=== PATIENT | male | born 1935 | race Caucasian/White ===

== ENCOUNTER → 2016-05-28 | Outpatient (CLI) | payer MEDICARE, OTHER | END | disposition home or self-care (01) | LOC: RAD 09:49 | PROVIDERS: ATTEND Family Medicine | DX: R05 Cough (principal) | CPT/HCPCS: 71020 ==

== ENCOUNTER → 2016-06-07 | Outpatient (CLI) | payer MEDICARE, OTHER ==
[~2016-06-07] MED LIST: ASPI-496 PO; CALC-72 PO; CARV6.2512 PO; CETI10CA PO; COLC0.6T37 PO; CYAN1TAB29 PO; DABI75CA3 PO; DIGO125T6 PO; DONE10TA30 PO; MAGN400T26 PO; MULT-658 PO; SIMV40TA PO; TRAV5DRO EACHEYE; VIT1CAPS42 PO
[2016-06-07 11:55] LABS: ASPARTATE AMINO TRANSFERASE 22 U/L (15-37); BLOOD UREA NITROGEN 21 mg/dL (7-18)
== END | disposition home or self-care (01) ==
LOC: STAR 10:03
PROVIDERS: ATTEND Urology
DX: Z01.818 Encounter for other preprocedural examination (principal); N20.0 Calculus of kidney
CPT/HCPCS: 36415; 80053; 81001; 87086; 93005

== ENCOUNTER 2016-06-15 06:45 | Day surgery (SDC) | payer MEDICARE, OTHER ==
[2016-06-07 10:31] VITALS: BP 115/69
[~2016-06-15] VITALS: Ht 190.5 cm; Wt 71.8 kg
[~2016-06-15 06:45] MED LIST changes: -TRAV5DRO EACHEYE; +TRAV5DRO LEFTEYE
[2016-06-15] MEDS ORDERED: LACTATED RINGERS 1,000 ML IV SCH (08:15)
[2016-06-15] MEDS ORDERED: LIDOCAINE 1%, 2ML SQ PRN (08:30)
[2016-06-15] MEDS ORDERED: FENTANYL PF 250 MCG/5ML ONE (09:25)
[2016-06-15] MEDS ORDERED: ROCURONIUM 10 MG/ML ONE (09:28)
[2016-06-15] MEDS ORDERED: PROPOFOL 10 MG/ML, 20ML ONE (09:28)
[2016-06-15] MEDS ORDERED: PHENYLEPHRINE 10 MG/ML ONE (09:28)
[2016-06-15] MEDS ORDERED: DEXAMETHASONE 4 MG/ML, 1ML ONE (09:28)
[2016-06-15] MEDS ORDERED: CEFAZOLIN 1,000 MG ONE (09:28)
[2016-06-15] MEDS ORDERED: EPHEDRINE 50 MG/ML, 1ML ONE (09:28)
[2016-06-15] MEDS ORDERED: ONDANSETRON 2MG/ML, 2ML ONE (09:28)
[2016-06-15] MEDS ORDERED: ONDANSETRON 2MG/ML, 2ML IVPush PRN (10:30)
[2016-06-15] MEDS ORDERED: MEPERIDINE/PF 25MG/0.5ML IVPush PRN (10:30)
[2016-06-15] MEDS ORDERED: ACETAMINOPHEN 325 MG TABLET PO PRN (10:30)
[2016-06-15] MEDS ORDERED: MIDAZOLAM 1 MG/ML, 2ML IV PRN (10:30)
[2016-06-15] MEDS ORDERED: FENTANYL PF 100 MCG/2ML IV PRN (10:30)
[2016-06-15] MEDS ORDERED: HYDROmorphone 1 MG/ML, 1ML IV PRN (10:30)
[2016-06-15] MEDS ORDERED: hydrALAzine 20 MG/ML, 1ML IV PRN (10:30)
[2016-06-15] MEDS ORDERED: METOCLOPRAMIDE 5 MG/ML, 2ML IV PRN (10:30)
[2016-06-15] MEDS ORDERED: LABETALOL 5MG/ML, 20ML IV PRN (10:30)
[2016-06-15] MEDS ORDERED: OXYcodone 5 MG/5 ML ORAL.SOL UDC PO PRN (10:30)
[2016-06-15] MEDS ORDERED: PROMETHAZINE 25 MG/ML, 1ML IV PRN (10:30)
[2016-06-15] MEDS ORDERED: OXYcodone 5 MG/5 ML ORAL.SOL UDC ONE (11:02)
[2016-06-15] MEDS ORDERED: ACETAMINOPHEN 650 MG/20.3 ML UDC ONE (11:02)
== END 2016-06-15 12:35 | disposition home or self-care (01) ==
LOC: OUT 06:45
PROVIDERS: ATTEND Urology
DX: N20.2 Calculus of kidney with calculus of ureter (principal); I25.10 Atherosclerotic heart disease of native coronary artery without angina pectoris; I10 Essential (primary) hypertension; Z79.82 Long term (current) use of aspirin
CPT/HCPCS: 52353; 74000; 76000; 88300; C1758; C1769; J0690; J1100; J2370; J2405; J2704; J3010; 82360

== ENCOUNTER 2018-07-21 09:20 | Inpatient (IN) | payer MEDICARE, OTHER ==
[~2018-07-21] VITALS: Ht 193 cm; Wt 80.0 kg
[~2018-07-21 09:20] MED LIST changes: +CALC-534 PO; -CALC-72 PO; -DIGO125T6 PO; +DIGO125T81 PO; -DONE10TA30 PO; +DONE10TA56 PO
[2018-07-21 09:56] VITALS: BP 126/71
[2018-07-21] MEDS ORDERED: LACTATED RINGERS 1,000 ML IV SCH (10:09)
[2018-07-21] MEDS ORDERED: MEMA1CAP3 PO (10:12)
[2018-07-21] MEDS ORDERED: ATOR10TA PO (10:12)
[2018-07-21 14:38] LABS: BASOPHILS # (AUTO) 0.03 x10^3/uL (0-0.1); BASOPHILS % (AUTO) 1 % (0-1); EOSINOPHILS # (AUTO) 0.19 x10^3/uL (0-0.4); EOSINOPHILS % (AUTO) 3 % (1-7); LYMPHOCYTES # (AUTO) 0.99 x10^3/uL (1-3.4); LYMPHOCYTES % (AUTO) 15 % (22-44); MD NO; MEAN CORPUSCULAR HGB CONC 32.3 g/dL (33.2-36.2); MEAN CORPUSCULAR VOLUME 83.7 fL (81-97); MEAN PLATELET VOLUME 7.6 fL (7.4-10.4); MONOCYTES # (AUTO) 0.48 x10^3/uL (0.2-0.8); MONOCYTES % (AUTO) 7 % (2-9); NEUTROPHILS # (AUTO) 4.97 x10^3/uL (1.8-6.8); NEUTROPHILS % (AUTO) 75 % (42-75); PLATELET COUNT 111 x10^3/uL (130-400); RED BLOOD COUNT 3.93 x10^6/uL (4.38-5.82); RED CELL DISTRIBUTION WIDTH 15.9 % (9.4-14.8)
[2018-07-21 14:49] LABS: ALANINE AMINOTRANSFERASE 20 U/L (12-78); ANION GAP 6 mmol/L (5-15); CALCIUM 7.9 mg/dL (8.5-10.1); CHLORIDE 111 mmol/L (98-107); CREATININE 1.24 mg/dL (0.7-1.3)
[2018-07-21 14:52] LABS: INTERNATIONAL NORMALIZED RATIO 1.26 (0.93-1.1)
[2018-07-21 14:53] LABS: ALKALINE PHOSPHATASE 95 U/L (45-117); BILIRUBIN,TOTAL 1.1 mg/dL (0.2-1.0); TOTAL PROTEIN 5.2 g/dL (6.4-8.2)
[2018-07-21 15:08] LABS: PROTHROMBIN TIME 13.1 Seconds (9.6-11.5)
[2018-07-21] MEDS ORDERED: ONDANSETRON ODT 4 MG PO PRN (15:30)
[2018-07-21] MEDS ORDERED: POLYETHYLENE GLYCOL 17 GM PACKET PO PRN (15:30)
[2018-07-21] MEDS ORDERED: ONDANSETRON 2MG/ML, 2ML IVPush PRN (15:30)
[2018-07-21] MEDS ORDERED: LABETALOL 5MG/ML, 20ML IVPush PRN (15:30)
[2018-07-21] MEDS ORDERED: NALOXONE 0.4 MG/ML, 1ML IV PRN (16:30)
[2018-07-21] MEDS: D5%-0.45% NACL 1,000 ML IV SCH (16:40)
[2018-07-21] MEDS ORDERED: OMNIPAQUE 350 MG/ML, 100ML BOTTLE ONE (18:54)
[2018-07-21 19:15] VITALS: BP 110/62
[2018-07-22] VITALS: BP 121/58
[2018-07-22] MEDS: COLCHICINE 0.6 MG TABLET PO PRN ×2 (01:05→21:30)
[2018-07-22 04:21] VITALS: BP 112/69
[2018-07-22] MEDS: D5%-0.45% NACL 1,000 ML IV SCH ×2 (04:22→11:54)
[2018-07-22] MEDS ORDERED: OXYcodone/APAP 5/325MG TABLET PO ONE (05:00)
[2018-07-22 05:22] LABS: BASOPHILS # (AUTO) 0.02 x10^3/uL (0-0.1); BASOPHILS % (AUTO) 0 % (0-1); CHLORIDE 110 mmol/L (98-107); EOSINOPHILS % (AUTO) 1 % (1-7); LYMPHOCYTES # (AUTO) 1.24 x10^3/uL (1-3.4); LYMPHOCYTES % (AUTO) 15 % (22-44); MD NO; MEAN CORPUSCULAR HEMOGLOBIN 27.5 pg (27.5-34.5); MEAN CORPUSCULAR HGB CONC 33.2 g/dL (33.2-36.2); MEAN CORPUSCULAR VOLUME 82.7 fL (81-97); MEAN PLATELET VOLUME 7.9 fL (7.4-10.4); MONOCYTES # (AUTO) 0.71 x10^3/uL (0.2-0.8); MONOCYTES % (AUTO) 8 % (2-9); NEUTROPHILS # (AUTO) 6.51 x10^3/uL (1.8-6.8); NEUTROPHILS % (AUTO) 76 % (42-75); PLATELET COUNT 119 x10^3/uL (130-400); RED BLOOD COUNT 4.16 x10^6/uL (4.38-5.82); RED CELL DISTRIBUTION WIDTH 16.1 % (9.4-14.8)
[2018-07-22 05:34] LABS: ALANINE AMINOTRANSFERASE 21 U/L (12-78); ALBUMIN 3.3 g/dL (3.4-5.0); ALKALINE PHOSPHATASE 108 U/L (45-117); ANION GAP 4 mmol/L (5-15); BILIRUBIN,TOTAL 1.5 mg/dL (0.2-1.0); CALCIUM 8.2 mg/dL (8.5-10.1); TOTAL PROTEIN 5.7 g/dL (6.4-8.2)
[2018-07-22 07:04] VITALS: BP 110/59
[2018-07-22] MEDS ORDERED: MEMANTINE HCL HOMEMEDPO SCH (09:00)
[2018-07-22] MEDS ORDERED: DONEPEZIL HCL HOMEMEDPO SCH (09:00)
[2018-07-22] MEDS: MULTIVITAMIN 1 TABLET PO SCH (09:01)
[2018-07-22] MEDS: SENNA/DOCUSATE TABLET PO SCH (09:01)
[2018-07-22] MEDS: CARVEDILOL 6.25 MG TABLET PO SCH (09:01)
[2018-07-22] MEDS: MAGNESIUM OXIDE 400 MG TABLET PO SCH ×2 (09:01→21:25)
[2018-07-22 14:09] VITALS: BP 111/60
[2018-07-22 19:56] VITALS: BP 113/68
[2018-07-22] MEDS ORDERED: TRAVOPROST OPHTH 0.004%, 2.5ML LEFTEYE SCH (21:00)
[2018-07-22] MEDS ORDERED: ATORVASTATIN 10 MG TABLET PO SCH (21:00)
[2018-07-22] MEDS: TRAVOPROST OPHTH 0.004%, 2.5ML OP SCH (21:43)
[2018-07-23 02:20] VITALS: BP 114/71
[2018-07-23 05:31] LABS: BASOPHILS # (AUTO) 0.02 x10^3/uL (0-0.1); BASOPHILS % (AUTO) 0 % (0-1); EOSINOPHILS % (AUTO) 2 % (1-7); LYMPHOCYTES # (AUTO) 1.44 x10^3/uL (1-3.4); LYMPHOCYTES % (AUTO) 21 % (22-44); MD NO; MEAN CORPUSCULAR HEMOGLOBIN 27.3 pg (27.5-34.5); MEAN CORPUSCULAR HGB CONC 32.9 g/dL (33.2-36.2); MONOCYTES # (AUTO) 0.67 x10^3/uL (0.2-0.8); MONOCYTES % (AUTO) 10 % (2-9); NEUTROPHILS # (AUTO) 4.75 x10^3/uL (1.8-6.8); NEUTROPHILS % (AUTO) 68 % (42-75); PLATELET COUNT 119 x10^3/uL (130-400); RED BLOOD COUNT 4.21 x10^6/uL (4.38-5.82); RED CELL DISTRIBUTION WIDTH 15.8 % (9.4-14.8)
[2018-07-23 05:40] LABS: CALCIUM 8.3 mg/dL (8.5-10.1); CHLORIDE 111 mmol/L (98-107)
[2018-07-23 05:46] LABS: ALANINE AMINOTRANSFERASE 17 U/L (12-78); ALBUMIN 3.1 g/dL (3.4-5.0); ALKALINE PHOSPHATASE 103 U/L (45-117); ANION GAP 4 mmol/L (5-15); BILIRUBIN,TOTAL 1.1 mg/dL (0.2-1.0); CREATININE 1.44 mg/dL (0.7-1.3); TOTAL PROTEIN 5.7 g/dL (6.4-8.2)
[2018-07-23 08:10] VITALS: BP 118/75
[2018-07-23] MEDS: morphine SULFATE 10 MG/ML, 1ML IV PRN (09:30)
[2018-07-23] MEDS: MULTIVITAMIN 1 TABLET PO SCH (09:32)
[2018-07-23] MEDS: SENNA/DOCUSATE TABLET PO SCH (09:32)
[2018-07-23] MEDS: MAGNESIUM OXIDE 400 MG TABLET PO SCH ×2 (09:32→21:00)
[2018-07-23] MEDS: CARVEDILOL 6.25 MG TABLET PO SCH (09:32)
[2018-07-23 13:39] VITALS: BP 124/76
[2018-07-23] MEDS ORDERED: FENTANYL PF 250 MCG/5ML ONE (15:00)
[2018-07-23] MEDS ORDERED: ONDANSETRON 2MG/ML, 2ML ONE (15:03)
[2018-07-23] MEDS ORDERED: CEFOTETAN 2 GM ONE (15:03)
[2018-07-23] MEDS ORDERED: ROCURONIUM 10 MG/ML,10ML ONE (15:03)
[2018-07-23] MEDS ORDERED: D5%-0.45% NACL 1,000 ML IV SCH (15:03)
[2018-07-23] MEDS ORDERED: SUCCINYLCHOLINE 20 MG/ML, 10ML ONE (15:03)
[2018-07-23] MEDS ORDERED: PROPOFOL 50 ML ONE (15:22)
[2018-07-23] MEDS ORDERED: FENTANYL PF 100 MCG/2ML IV PRN (16:30)
[2018-07-23] MEDS ORDERED: EPHEDRINE 50 MG/ML, 1ML IM PRN (16:30)
[2018-07-23] MEDS ORDERED: ONDANSETRON ODT 8 MG PO PRN (16:30)
[2018-07-23] MEDS ORDERED: OXYcodone 5 MG/5 ML ORAL.SOL UDC PO PRN (16:30)
[2018-07-23] MEDS ORDERED: PROMETHAZINE 25 MG/ML, 1ML IV PRN (16:30)
[2018-07-23] MEDS ORDERED: ONDANSETRON 2MG/ML, 2ML IV PRN (16:30)
[2018-07-23] MEDS ORDERED: MIDAZOLAM 1 MG/ML, 2ML IV PRN (16:30)
[2018-07-23] MEDS ORDERED: FENTANYL PF 100 MCG/2ML ONE (17:17)
[2018-07-23] MEDS ORDERED: HYDROmorphone 2 MG/ML, 1ML ONE (17:17)
[2018-07-23] MEDS: HYDROmorphone 2 MG/ML, 1ML IVPush PRN ×4 (17:22→18:09)
[2018-07-23 19:27] VITALS: BP 112/56
[2018-07-23] MEDS ORDERED: D5%-0.45NACL+KCL 20MEQ 1,000 ML IV SCH (19:30)
[2018-07-23] MEDS: TRAVOPROST OPHTH 0.004%, 2.5ML OP SCH (21:00)
[2018-07-23] MEDS ORDERED: SODIUM CHLORIDE 0.9% 1,000ML IVBOLUS ONE (21:30)
[2018-07-23] MEDS ORDERED: SODIUM CHLORIDE 0.9%, 500ML IVBOLUS ONE (23:30)
[2018-07-24 00:27] VITALS: BP 99/52
[2018-07-24] MEDS: morphine SULFATE 10 MG/ML, 1ML IV PRN ×3 (02:23→20:46)
[2018-07-24 04:03] VITALS: BP 97/51
[2018-07-24 07:06] LABS: MEAN CORPUSCULAR HEMOGLOBIN 26.4 pg (27.5-34.5); MEAN CORPUSCULAR HGB CONC 30.8 g/dL (33.2-36.2); MEAN CORPUSCULAR VOLUME 85.7 fL (81-97); MEAN PLATELET VOLUME 7.9 fL (7.4-10.4); PLATELET COUNT 116 x10^3/uL (130-400); RED BLOOD COUNT 4.19 x10^6/uL (4.38-5.82); RED CELL DISTRIBUTION WIDTH 15.5 % (9.4-14.8)
[2018-07-24 07:13] LABS: ALANINE AMINOTRANSFERASE 17 U/L (12-78); ALBUMIN 2.6 g/dL (3.4-5.0); ANION GAP 5 mmol/L (5-15); CALCIUM 7.6 mg/dL (8.5-10.1); CHLORIDE 114 mmol/L (98-107); CREATININE 1.38 mg/dL (0.7-1.3)
[2018-07-24 07:15] LABS: ALKALINE PHOSPHATASE 88 U/L (45-117); BILIRUBIN,TOTAL 1.4 mg/dL (0.2-1.0); TOTAL PROTEIN 4.9 g/dL (6.4-8.2)
[2018-07-24 07:32] LABS: ANISOCYTOSIS 1+; BASOPHILS # (AUTO) 0.03 x10^3/uL (0-0.1); BASOPHILS % (AUTO) 0 % (0-1); EOSINOPHILS # (AUTO) 0.03 x10^3/uL (0-0.4); EOSINOPHILS % (AUTO) 0 % (1-7); LYMPHOCYTES % (AUTO) 9 % (22-44); MD MORPH REVIEW ONLY; MONOCYTES # (AUTO) 0.94 x10^3/uL (0.2-0.8); MONOCYTES % (AUTO) 8 % (2-9); NEUTROPHILS # (AUTO) 9.28 x10^3/uL (1.8-6.8); NEUTROPHILS % (AUTO) 82 % (42-75)
[2018-07-24 07:33] LABS: <PLATELET ESTIMATE> DECREASED; <PLT MORPHOLOGY> NORMAL PLT MORPH; HYPOCHROMIA 1+; OVALOCYTES 1+; POLYCHROMASIA 1+
[2018-07-24 07:37] VITALS: BP 98/51
[2018-07-24] MEDS: MAGNESIUM OXIDE 400 MG TABLET PO SCH ×2 (07:37→20:30)
[2018-07-24] MEDS: CARVEDILOL 6.25 MG TABLET PO SCH (09:00)
[2018-07-24] MEDS ORDERED: OMNIPAQUE 350 MG/ML, 75ML BOTTLE ONE (12:05)
[2018-07-24] MEDS: D5%-0.45% NACL 1,000 ML IV SCH ×2 (12:11→21:42)
[2018-07-24 13:11] VITALS: BP 112/70
[2018-07-24 16:38] VITALS: BP 100/50
[2018-07-24] MEDS ORDERED: D5%-0.45NACL+KCL 20MEQ 1,000 ML IV SCH (19:30)
[2018-07-24] MEDS: TRAVOPROST OPHTH 0.004%, 2.5ML OP SCH (20:30)
[2018-07-24 21:34] VITALS: BP 104/56
[2018-07-25] MEDS: morphine SULFATE 10 MG/ML, 1ML IV PRN ×3 (02:53→18:29)
[2018-07-25 03:55] VITALS: BP 97/57
[2018-07-25 04:43] LABS: BASOPHILS # (AUTO) 0.03 x10^3/uL (0-0.1); BASOPHILS % (AUTO) 0 % (0-1); EOSINOPHILS # (AUTO) 0.09 x10^3/uL (0-0.4); EOSINOPHILS % (AUTO) 1 % (1-7); LYMPHOCYTES # (AUTO) 0.93 x10^3/uL (1-3.4); LYMPHOCYTES % (AUTO) 11 % (22-44); MD NO; MEAN CORPUSCULAR HEMOGLOBIN 27.4 pg (27.5-34.5); MEAN CORPUSCULAR HGB CONC 32.8 g/dL (33.2-36.2); MEAN CORPUSCULAR VOLUME 83.6 fL (81-97); MEAN PLATELET VOLUME 7.8 fL (7.4-10.4); MONOCYTES # (AUTO) 0.83 x10^3/uL (0.2-0.8); MONOCYTES % (AUTO) 10 % (2-9); NEUTROPHILS % (AUTO) 78 % (42-75); PLATELET COUNT 103 x10^3/uL (130-400); RED BLOOD COUNT 3.69 x10^6/uL (4.38-5.82); RED CELL DISTRIBUTION WIDTH 15.1 % (9.4-14.8)
[2018-07-25 04:52] LABS: CHLORIDE 110 mmol/L (98-107)
[2018-07-25 05:01] LABS: ANION GAP 3 mmol/L (5-15); CALCIUM 7.8 mg/dL (8.5-10.1); CREATININE 1.31 mg/dL (0.7-1.3)
[2018-07-25] MEDS: D5%-0.45% NACL 1,000 ML IV SCH ×2 (05:31→16:05)
[2018-07-25 08:50] VITALS: BP 106/70
[2018-07-25 09:44] VITALS: BP 99/64
[2018-07-25] MEDS: CARVEDILOL 6.25 MG TABLET PO SCH (09:44)
[2018-07-25] MEDS: MAGNESIUM OXIDE 400 MG TABLET PO SCH ×2 (09:46→20:56)
[2018-07-25 15:42] VITALS: BP 99/55
[2018-07-25] MEDS: TRAVOPROST OPHTH 0.004%, 2.5ML OP SCH (20:56)
[2018-07-25 21:03] VITALS: BP 109/71
[2018-07-26] MEDS ORDERED: MORPHINE SULFATE 4 MG/ML, 1ML ONE (00:37)
[2018-07-26] MEDS: morphine SULFATE 10 MG/ML, 1ML IV PRN ×2 (00:40→08:40)
[2018-07-26 00:48] VITALS: BP 123/69
[2018-07-26] MEDS: D5%-0.45% NACL 1,000 ML IV SCH (01:55)
[2018-07-26 04:36] LABS: BASOPHILS # (AUTO) 0.02 x10^3/uL (0-0.1); BASOPHILS % (AUTO) 0 % (0-1); EOSINOPHILS # (AUTO) 0.11 x10^3/uL (0-0.4); EOSINOPHILS % (AUTO) 2 % (1-7); LYMPHOCYTES # (AUTO) 0.91 x10^3/uL (1-3.4); LYMPHOCYTES % (AUTO) 12 % (22-44); MD NO; MEAN CORPUSCULAR HEMOGLOBIN 27.3 pg (27.5-34.5); MEAN CORPUSCULAR HGB CONC 31.9 g/dL (33.2-36.2); MEAN CORPUSCULAR VOLUME 85.6 fL (81-97); MEAN PLATELET VOLUME 7.9 fL (7.4-10.4); MONOCYTES # (AUTO) 0.67 x10^3/uL (0.2-0.8); MONOCYTES % (AUTO) 9 % (2-9); NEUTROPHILS % (AUTO) 77 % (42-75); PLATELET COUNT 108 x10^3/uL (130-400); RED BLOOD COUNT 3.91 x10^6/uL (4.38-5.82); RED CELL DISTRIBUTION WIDTH 14.9 % (9.4-14.8)
[2018-07-26 04:47] LABS: CHLORIDE 109 mmol/L (98-107)
[2018-07-26 04:53] LABS: ALANINE AMINOTRANSFERASE 25 U/L (12-78); ALBUMIN 2.4 g/dL (3.4-5.0); ALKALINE PHOSPHATASE 84 U/L (45-117); ANION GAP 5 mmol/L (5-15); BILIRUBIN, DIRECT 0.3 mg/dL (0.1-0.2); BILIRUBIN,INDIRECT 0.7 mg/dL (0.0-2.0); CALCIUM 7.9 mg/dL (8.5-10.1); CREATININE 1.17 mg/dL (0.7-1.3); TOTAL PROTEIN 5.2 g/dL (6.4-8.2)
[2018-07-26 07:00] VITALS: BP 123/78
[2018-07-26] MEDS: MAGNESIUM OXIDE 400 MG TABLET PO SCH ×2 (08:10→20:49)
[2018-07-26] MEDS: CARVEDILOL 6.25 MG TABLET PO SCH (08:10)
[2018-07-26] MEDS ORDERED: morphine SULFATE 10 MG/ML, 1ML IV PRN (11:00)
[2018-07-26] MEDS ORDERED: D5%-0.45% NACL 1,000 ML IV SCH (11:30)
[2018-07-26] MEDS ORDERED: ENOXAPARIN 40 MG/0.4 ML SQ SCH (14:00)
[2018-07-26 14:10] VITALS: BP 120/68
[2018-07-26] MEDS: HYDROcodone/APAP 5/325 TABLET PO PRN ×2 (14:24→20:48)
[2018-07-26 20:02] VITALS: BP 112/70
[2018-07-26] MEDS: TRAVOPROST OPHTH 0.004%, 2.5ML OP SCH (20:49)
[2018-07-27] MEDS: morphine SULFATE 10 MG/ML, 1ML IV PRN ×2 (00:27→08:48)
[2018-07-27 00:37] VITALS: BP 109/68
[2018-07-27 05:18] LABS: BASOPHILS # (AUTO) 0.02 x10^3/uL (0-0.1); BASOPHILS % (AUTO) 0 % (0-1); EOSINOPHILS # (AUTO) 0.19 x10^3/uL (0-0.4); EOSINOPHILS % (AUTO) 3 % (1-7); LYMPHOCYTES # (AUTO) 1.04 x10^3/uL (1-3.4); LYMPHOCYTES % (AUTO) 17 % (22-44); MD NO; MEAN CORPUSCULAR HEMOGLOBIN 27.2 pg (27.5-34.5); MEAN CORPUSCULAR VOLUME 85.3 fL (81-97); MEAN PLATELET VOLUME 7.8 fL (7.4-10.4); MONOCYTES # (AUTO) 0.61 x10^3/uL (0.2-0.8); MONOCYTES % (AUTO) 10 % (2-9); NEUTROPHILS # (AUTO) 4.38 x10^3/uL (1.8-6.8); NEUTROPHILS % (AUTO) 70 % (42-75); PLATELET COUNT 135 x10^3/uL (130-400); RED BLOOD COUNT 3.92 x10^6/uL (4.38-5.82); RED CELL DISTRIBUTION WIDTH 14.8 % (9.4-14.8)
[2018-07-27 05:21] LABS: CHLORIDE 108 mmol/L (98-107)
[2018-07-27 05:28] LABS: ALANINE AMINOTRANSFERASE 42 U/L (12-78); ALBUMIN 2.5 g/dL (3.4-5.0); ALKALINE PHOSPHATASE 89 U/L (45-117); ANION GAP 5 mmol/L (5-15); BILIRUBIN,TOTAL 0.9 mg/dL (0.2-1.0); CREATININE 1.29 mg/dL (0.7-1.3); TOTAL PROTEIN 5.5 g/dL (6.4-8.2)
[2018-07-27 07:25] VITALS: BP 123/76
[2018-07-27] MEDS: MAGNESIUM OXIDE 400 MG TABLET PO SCH ×2 (08:47→20:40)
[2018-07-27] MEDS: CARVEDILOL 6.25 MG TABLET PO SCH (08:47)
[2018-07-27] MEDS: HYDROcodone/APAP 5/325 TABLET PO PRN ×2 (12:34→22:47)
[2018-07-27] MEDS ORDERED: PHARMACY MAY ADJ FOR RENAL FX MC PRN (13:30)
[2018-07-27 13:58] VITALS: BP 92/56
[2018-07-27 16:54] VITALS: BP 108/66
[2018-07-27 19:35] VITALS: BP 105/64
[2018-07-27] MEDS: DABIGATRAN 150 MG CAPSULE PO SCH (20:40)
[2018-07-27] MEDS: TRAVOPROST OPHTH 0.004%, 2.5ML OP SCH (20:41)
[2018-07-28] MEDS ORDERED: DIPHENHYDRAMINE 25 MG CAPSULE PO PRN
[2018-07-28 00:35] VITALS: BP 138/81
[2018-07-28 08:12] VITALS: BP 126/76
[2018-07-28] MEDS: HYDROcodone/APAP 5/325 TABLET PO PRN (09:05)
[2018-07-28] MEDS: MAGNESIUM OXIDE 400 MG TABLET PO SCH (09:05)
[2018-07-28] MEDS: DABIGATRAN 150 MG CAPSULE PO SCH (09:05)
[2018-07-28] MEDS: CARVEDILOL 6.25 MG TABLET PO SCH (09:06)
[2018-07-28 10:07] LABS: BASOPHILS # (AUTO) 0.03 x10^3/uL (0-0.1); BASOPHILS % (AUTO) 1 % (0-1); EOSINOPHILS # (AUTO) 0.23 x10^3/uL (0-0.4); EOSINOPHILS % (AUTO) 4 % (1-7); LYMPHOCYTES # (AUTO) 1.14 x10^3/uL (1-3.4); LYMPHOCYTES % (AUTO) 20 % (22-44); MD NO; MEAN CORPUSCULAR HEMOGLOBIN 26.1 pg (27.5-34.5); MEAN CORPUSCULAR HGB CONC 31.1 g/dL (33.2-36.2); MEAN PLATELET VOLUME 7.5 fL (7.4-10.4); MONOCYTES # (AUTO) 0.46 x10^3/uL (0.2-0.8); MONOCYTES % (AUTO) 8 % (2-9); NEUTROPHILS # (AUTO) 3.78 x10^3/uL (1.8-6.8); NEUTROPHILS % (AUTO) 67 % (42-75); PLATELET COUNT 166 x10^3/uL (130-400); RED BLOOD COUNT 4.68 x10^6/uL (4.38-5.82); RED CELL DISTRIBUTION WIDTH 15.2 % (9.4-14.8)
[2018-07-28 10:31] LABS: ALBUMIN 2.8 g/dL (3.4-5.0); ANION GAP 7 mmol/L (5-15); CALCIUM 8.6 mg/dL (8.5-10.1); CHLORIDE 107 mmol/L (98-107); CREATININE 1.21 mg/dL (0.7-1.3)
[2018-07-28 10:42] LABS: ALANINE AMINOTRANSFERASE 57 U/L (12-78); ALKALINE PHOSPHATASE 109 U/L (45-117); BILIRUBIN,TOTAL 0.7 mg/dL (0.2-1.0); TOTAL PROTEIN 6.3 g/dL (6.4-8.2)
[2018-07-28 13:23] VITALS: BP 128/72
[2018-07-28 13:33] VITALS: BP 126/79
== END 2018-07-28 16:39 | DRG 330 ==
LOC: OUT 09:20 → ORIP 15:03 → 4NOR 16:13 → 3NW 07-24 15:47
PROVIDERS: ADMIT Internal Medicine; ATTEND Internal Medicine
PROC: 0DBK8ZX Excision of Ascending Colon, Via Natural or Artificial Opening Endoscopic, Diagnostic (ICD-10-PCS; 2018-07-21)
PROC: 0DTF0ZZ Resection of Right Large Intestine, Open Approach (ICD-10-PCS; principal; 2018-07-23 15:00)
DX: C18.2 Malignant neoplasm of ascending colon (principal); K92.1 Melena; D68.69 Other thrombophilia; C18.3 Malignant neoplasm of hepatic flexure; E46 Unspecified protein-calorie malnutrition; K56.7 Ileus, unspecified; R17 Unspecified jaundice; I48.91 Unspecified atrial fibrillation; D64.9 Anemia, unspecified; D69.6 Thrombocytopenia, unspecified; K57.90 Diverticulosis of intestine, part unspecified, without perforation or abscess without bleeding; I11.0 Hypertensive heart disease with heart failure; Z98.49 Cataract extraction status, unspecified eye; E78.5 Hyperlipidemia, unspecified; Z68.21 Body mass index [BMI] 21.0-21.9, adult; F02.80 Dementia in other diseases classified elsewhere, unspecified severity, without behavioral disturbance, psychotic disturbance, mood disturbance, and anxiety; G30.9 Alzheimer's disease, unspecified; I50.9 Heart failure, unspecified; N20.0 Calculus of kidney; Z79.01 Long term (current) use of anticoagulants; Z79.02 Long term (current) use of antithrombotics/antiplatelets; Z87.19 Personal history of other diseases of the digestive system; Z87.442 Personal history of urinary calculi; Z87.891 Personal history of nicotine dependence; Z95.810 Presence of automatic (implantable) cardiac defibrillator
CPT/HCPCS: 36415; 71046; 71260; 74177; 80048; 80053; 82247; 82248; 82378; 83735; 84100; 85025; 85610; 88305; 88309; 93005; 93308; 93321; 93325; G0378; J1170; J1650; J2405; J2704; J3010; Q9967; A4648; J0330; J2270; J3480; J3490; J7030; J7040; J7120; Q0163

== ENCOUNTER → 2019-09-14 | Outpatient (CLI) | payer MEDICARE, OTHER ==
[~2019-09-14] MED LIST changes: +ACET500C3 PO; +APIX5TAB PO; +ATOR10TA PO; +MEMA1CAP3 PO
== END | disposition home or self-care (01) ==
LOC: STAR 11:40
PROVIDERS: ATTEND Internal Medicine
DX: Z01.818 Encounter for other preprocedural examination (principal); Z88.0 Allergy status to penicillin
CPT/HCPCS: 93005

== ENCOUNTER 2019-09-19 09:46 | Observation (INO) | payer MEDICARE, OTHER ==
[~2019-09-19] VITALS: Ht 190.5 cm; Wt 68.4 kg
--- NOTE | 2019-09-19 10:29 | NUR ---
Billie olson in [facility] - 09/19/19 at 1029 by PHYLLIS PT HAS AMBULATED TO DC DESK. AWAITING DC PAPERWORK. LEFT ARM SPLINT IN PLACE.
[2019-09-19] MEDS ORDERED: SODIUM CHLORIDE FLUSH 10ML SYR IVF ONE (11:00)
--- NOTE | 2019-09-19 11:00 | NUR ---
PT WHEELED DOWN TO TOILET FOR BM. PT DID NOT HAVE A BM, JUST GASSY. PT WHEELED BACK TO ROOM.
[2019-09-19 11:41] LABS: ALANINE AMINOTRANSFERASE 21 U/L (12-78); ALBUMIN 3.9 g/dL (3.4-5.0); BASOPHILS # (AUTO) 0.03 x10^3/uL (0-0.1); BASOPHILS % (AUTO) 0 % (0-1); CALCIUM 9.1 mg/dL (8.5-10.1); CHLORIDE 108 mmol/L (98-107); CREATININE 1.47 mg/dL (0.7-1.3); EOSINOPHILS % (AUTO) 3 % (1-7); LYMPHOCYTES # (AUTO) 1.84 x10^3/uL (1-3.4); LYMPHOCYTES % (AUTO) 23 % (22-44); MD NO; MEAN CORPUSCULAR HEMOGLOBIN 28.4 pg (27.5-34.5); MEAN CORPUSCULAR HGB CONC 32.3 g/dL (33.2-36.2); MEAN CORPUSCULAR VOLUME 87.7 fL (81-97); MEAN PLATELET VOLUME 8.6 fL (7.4-10.4); MONOCYTES % (AUTO) 8 % (2-9); NEUTROPHILS # (AUTO) 5.38 x10^3/uL (1.8-6.8); NEUTROPHILS % (AUTO) 67 % (42-75); PLATELET COUNT 120 x10^3/uL (130-400); RED BLOOD COUNT 5.27 x10^6/uL (4.38-5.82); RED CELL DISTRIBUTION WIDTH 16.4 % (9.4-14.8)
[2019-09-19 11:43] LABS: ALKALINE PHOSPHATASE 103 U/L (45-117); BILIRUBIN,TOTAL 1.6 mg/dL (0.2-1.0)
[2019-09-19 11:51] LABS: ANION GAP 7 mmol/L (5-15)
--- NOTE | 2019-09-19 12:24 | NUR ---
PT ABLE TO VOID IN CUP FOR URINE SAMPLE. URINE WALKED TO LAB. PT ASSISTED BACK TO BED. UNABLE TO STOOL AT THIS TIME.
[2019-09-19 12:30] LABS: MICROSCOPIC NOT IND
[2019-09-19] MEDS ORDERED: OMNIPAQUE 350 MG/ML, 100ML BOTTLE ONE (12:32)
--- NOTE | 2019-09-19 13:24 | NUR ---
PT HAS BEEN UP TO BEDSIDE COMMODE MULITPLE TIMES WITHOUT BEING ABLE TO PRODUCE STOOL SAMPLE. PT JUST GASSY.
[2019-09-19] MEDS: SODIUM CHLORIDE 0.9% 1,000 ML IV ONE ×2 (13:27→15:12)
[2019-09-19] MEDS ORDERED: SODIUM CHLORIDE FLUSH 10ML SYR IVF PRN (13:30)
--- NOTE | 2019-09-19 14:26 | NUR ---
break rn note : report given to ROBERTH Brady pt awaiting transport to room 350.
[2019-09-19] MEDS ORDERED: ACETAMINOPHEN 325 MG TABLET PO PRN (14:30)
[2019-09-19] MEDS ORDERED: ONDANSETRON 2MG/ML, 2ML IVPush PRN (14:30)
[2019-09-19] MEDS ORDERED: ONDANSETRON ODT 4 MG PO PRN (14:30)
[2019-09-19] MEDS ORDERED: SIMETHICONE 80 MG CHEW TAB PO PRN (14:30)
[2019-09-19] MEDS: SODIUM CHLORIDE 0.9% 1,000 ML IV SCH (15:14)
[2019-09-19 15:15] VITALS: BP 105/60
[2019-09-19 15:47] VITALS: BP 121/71
[2019-09-19] MEDS: ACETAMINOPHEN 500 MG TABLET PO SCH ×2 (17:03→20:13)
[2019-09-19] MEDS: CARVEDILOL 6.25 MG TABLET PO SCH (17:03)
[2019-09-19 17:04] VITALS: BP 137/80
[2019-09-19 19:13] LABS: CLOSTRIDIUM DIFFICILE ANTIGEN NEGATIVE; CLOSTRIDIUM DIFFICILE TOXIN NEGATIVE (Negative)
[2019-09-19] MEDS: APIXABAN 5 MG TABLET PO SCH (20:06)
[2019-09-19 20:16] VITALS: BP 108/61
[2019-09-19] MEDS ORDERED: TRAVOPROST OPHTH 0.004%, 2.5ML LEFTEYE SCH (21:00)
[2019-09-19] MEDS ORDERED: ATORVASTATIN 10 MG TABLET PO SCH (21:00)
[2019-09-20 02:18] VITALS: BP 104/62
[2019-09-20 06:28] LABS: MEAN CORPUSCULAR HEMOGLOBIN 28.7 pg (27.5-34.5); MEAN CORPUSCULAR HGB CONC 32.6 g/dL (33.2-36.2); MEAN CORPUSCULAR VOLUME 88.2 fL (81-97); RED BLOOD COUNT 4.69 x10^6/uL (4.38-5.82); RED CELL DISTRIBUTION WIDTH 15.9 % (9.4-14.8)
[2019-09-20 06:30] LABS: ANION GAP 4 mmol/L (5-15); CALCIUM 8.7 mg/dL (8.5-10.1); CHLORIDE 110 mmol/L (98-107)
[2019-09-20 06:31] LABS: CREATININE 1.33 mg/dL (0.7-1.3)
[2019-09-20 07:04] LABS: BASOPHILS # (AUTO) 0.04 x10^3/uL (0-0.1); BASOPHILS % (AUTO) 1 % (0-1); EOSINOPHILS # (AUTO) 0.27 x10^3/uL (0-0.4); EOSINOPHILS % (AUTO) 4 % (1-7); LYMPHOCYTES # (AUTO) 1.53 x10^3/uL (1-3.4); LYMPHOCYTES % (AUTO) 22 % (22-44); MD SCAN; MEAN PLATELET VOLUME 8.6 fL (7.4-10.4); MONOCYTES # (AUTO) 0.66 x10^3/uL (0.2-0.8); MONOCYTES % (AUTO) 9 % (2-9); NEUTROPHILS # (AUTO) 4.47 x10^3/uL (1.8-6.8); NEUTROPHILS % (AUTO) 64 % (42-75); PLATELET COUNT 94 x10^3/uL (130-400)
[2019-09-20 07:07] VITALS: BP 104/68
[2019-09-20] MEDS: SODIUM CHLORIDE 0.9% 1,000 ML IV SCH ×2 (08:06→08:08)
[2019-09-20] MEDS: ACETAMINOPHEN 500 MG TABLET PO SCH (08:07)
[2019-09-20] MEDS: CARVEDILOL 6.25 MG TABLET PO SCH (08:07)
[2019-09-20] MEDS: TEMPLATE NON-FORMULARY MED. (Cyanocobalamin/Folic Acid** (Vitamin B12-Folic Acid Tablet**) PO SCH ×2 (08:08→08:10)
[2019-09-20] MEDS: APIXABAN 5 MG TABLET PO SCH (08:09)
[2019-09-20] MEDS ORDERED: MULTIVITAMIN 1 TABLET PO SCH (09:00)
[2019-09-20] MEDS ORDERED: TEMPLATE NON-FORMULARY MED. (Vit C/E/Zn/Coppr/Lutein/Zeaxan** (Preservision Areds 2 Softge PO SCH (09:00)
[2019-09-20] MEDS ORDERED: ALLO100T30 PO (10:19)
[2019-09-20] MEDS ORDERED: SIME80TA16 PO (10:35)
== END 2019-09-20 12:49 | disposition home or self-care (01) ==
LOC: ED 10:08 → INTOOBSV 13:27 → EDIP 13:27 → 3N 15:16
PROVIDERS: ADMIT Internal Medicine; ATTEND Internal Medicine
DX: R10.9 Unspecified abdominal pain (principal); R19.7 Diarrhea, unspecified; N17.9 Acute kidney failure, unspecified; G30.9 Alzheimer's disease, unspecified; F02.81 Dementia in other diseases classified elsewhere, unspecified severity, with behavioral disturbance; I48.91 Unspecified atrial fibrillation; N20.0 Calculus of kidney; I10 Essential (primary) hypertension; E78.5 Hyperlipidemia, unspecified; Z85.038 Personal history of other malignant neoplasm of large intestine
CPT/HCPCS: 36415; 71045; 74177; 80048; 80053; 81003; 85025; 87324; 89055; 93005; 96360; 96361; 97161; 99285; G0378; J7030; Q9967